=== PATIENT | female | born 1990 | race Caucasian/White ===

== ENCOUNTER 2018-03-28 12:51 | Emergency (ER) | payer MEDICAID, OTHER ==
[2018-03-28 15:17] VITALS: BP 119/62
--- NOTE | 2018-03-28 15:32 | UC ---
Throat Pain/Nasal Denilson HPI - HPI Summary HPI Summary: 27-year-old woman comes in with a chief complaint of 2 weeks of upper and discharge tract infection symptoms. Her rhinorrhea has turned green. She has sinus pressure does have mild sore throat. Last couple of days she has started feeling a lot worse. No shortness of breath no chest congestion. Over-the- counter medicines up with the symptoms. - History of Current Complaint Chief Complaint: UCRespiratory Stated Complaint: CONGESTION,SHEARER,ST Time Seen by Provider: 03/28/18 15:08 Hx Last Menstrual Period: [id number] Pain Intensity: 0 - Allergies/Home Medications Allergies/Adverse Reactions: Allergies Allergy/AdvReac Type Severity Reaction Status Date / Time acetaminophen Allergy Hives/Diff. Verified 03/28/18 15:18 Breathing/I tching PMH/Surg Hx/FS Hx/Imm Hx Previously Healthy: Yes - Surgical History Surgical History: Yes Surgery Procedure, Year, and Place: 2014 [place] - Family History Known Family History: Positive: Non-Contributory - Social History Alcohol Use: None Substance Use Type: None Smoking Status (MU): Light Every Day Tobacco Smoker Review of Systems All Other Systems Reviewed And Are Negative: Yes Constitutional: Positive: Negative Skin: Positive: Negative Eyes: Positive: Negative ENT: Positive: Nasal Discharge, Sinus Congestion, Sinus Pain/Tenderness Respiratory: Positive: Negative Cardiovascular: Positive: Negative Gastrointestinal: Positive: Negative Motor: Positive: Negative Neurovascular: Positive: Negative Musculoskeletal: Positive: Negative Neurological: Positive: Negative Psychological: Positive: Negative Is Patient Immunocompromised?: No Physical Exam Triage Information Reviewed: Yes Appearance: No Pain Distress, Well-Nourished, Ill-Appearing - MILD Vital Signs: Initial Vital Signs Temp 97.8 F 03/28/18 15:13 Pulse 78 03/28/18 15:13 Resp 18 03/28/18 15:13 BP 119/62 03/28/18 15:13 Pulse Ox 100 03/28/18 15:13 Vital Signs Reviewed: Yes Eye Exam: Normal Eyes: Positive: Conjunctiva Clear ENT: Positive: Pharyngeal erythema, Nasal congestion, Nasal drainage, TMs normal Neck exam: Normal Neck: Positive: Supple Respiratory: Positive: Lungs clear, Normal breath sounds, No respiratory distress Cardiovascular: Positive: RRR Musculoskeletal Exam: Normal Musculoskeletal: Positive: Strength Intact, ROM Intact Neurological Exam: Normal Neurological: Positive: Alert Psychological Exam: Normal Psychological: Positive: Age Appropriate Behavior Skin Exam: Normal Throat Pain/Nasal Course/Dx - Differential Dx/Diagnosis Provider Diagnosis: Sinusitis Discharge - Sign-Out/Discharge Documenting (check all that apply): Patient Departure All imaging exams completed and their final reports reviewed: No Studies - Discharge Plan Condition: Stable Disposition: HOME Prescriptions: Amoxicillin/Clavulanate TAB* [Augmentin TAB 875*] 875 mg PO BID #20 tab Patient Education Materials: Sinusitis (ED) Referrals: Leni MIRAMONTES,Bam Heller [Primary Care Provider] - Additional Instructions: FOLLOW UP WITH YOUR DOCTOR IF NOT COMPLETELY IMPROVED. GET RECHECKED FOR ANY WORSENING OF YOUR CONDITION OR QUESTIONS OR CONCERNS. - Billing Disposition and Condition Condition: STABLE Disposition: Home
[2018-03-28 15:54] LABS: Influenza A Molecular NEGATIVE (Negative); Influenza B Molecular NEGATIVE (Negative)
== END 2018-03-28 16:00 | disposition home or self-care (01) ==
LOC: UCCORT 12:51
DX: J32.9 Chronic sinusitis, unspecified (principal); F17.200 Nicotine dependence, unspecified, uncomplicated; Z88.8 Allergy status to other drugs, medicaments and biological substances
CPT/HCPCS: 99212; G0463

== ENCOUNTER 2018-05-02 16:48 | Emergency (ER) | payer OTHER ==
[2018-05-02 17:57] VITALS: BP 117/60
--- NOTE | 2018-05-02 18:05 | UC ---
UC Dental HPI - HPI Summary HPI Summary: 27 yo female with left upper dentalgia x 3-4 days swelling today feverish - History of Current Complaint Chief Complaint: UCDentalProblem Stated Complaint: DENTAL COMPLAINT Time Seen by Provider: 05/02/18 18:03 Hx Obtained From: Patient Hx Last Menstrual Period: end of 03/2018 on BCP Onset/Duration: Gradual Onset, Lasting Days Severity: Severe Pain Intensity: 9 Pain Scale Used: 0-10 Numeric Aggravating Factor(s): Heat, Cold, Chewing Alleviating Factor(s): OTC Meds Related History: Swelling Dental: 1 - abscess - Allergies/Home Medications Allergies/Adverse Reactions: Allergies Allergy/AdvReac Type Severity Reaction Status Date / Time acetaminophen Allergy Hives/Diff. Verified 05/02/18 17:57 Breathing/I tching Home Medications: Home Medications Ibuprofen TAB* [Advil TAB*] 800 mg PO ONCE 05/02/18 [History Confirmed 05/02/18] PMH/Surg Hx/FS Hx/Imm Hx Previously Healthy: Yes - Surgical History Surgical History: Yes Surgery Procedure, Year, and Place: 2014 [place] - Family History Known Family History: Positive: Hypertension, Non-Contributory - Social History Alcohol Use: None Substance Use Type: None Smoking Status (MU): Light Every Day Tobacco Smoker Type: Cigarettes Amount Used/How Often: < 1/2 ppd Review of Systems All Other Systems Reviewed And Are Negative: Yes Constitutional: Positive: Fatigue Skin: Positive: Negative Eyes: Positive: Negative ENT: Positive: Dental Pain Respiratory: Positive: Negative Gastrointestinal: Positive: Negative Genitourinary: Positive: Negative Motor: Positive: Negative Neurovascular: Positive: Negative Musculoskeletal: Positive: Negative Neurological: Positive: Negative Psychological: Positive: Negative Physical Exam Triage Information Reviewed: Yes Appearance: Well-Appearing, No Pain Distress Vital Signs: Initial Vital Signs Temp 100.7 F 05/02/18 17:53 Pulse 86 05/02/18 17:53 Resp 16 05/02/18 17:53 BP 117/60 05/02/18 17:53 Pulse Ox 100 05/02/18 17:53 Vital Signs Reviewed: Yes Eyes: Positive: Conjunctiva Clear ENT: Positive: Hearing grossly normal. Negative: Nasal congestion, Nasal drainage, Tonsillar swelling, Tonsillar exudate, Hoarse voice Dental: Positive: Abscess @ - see image Neck: Positive: Supple, Nontender, Enlarged Nodes @ - left ant cerv Respiratory: Positive: Lungs clear, Normal breath sounds, No respiratory distress, No accessory muscle use Cardiovascular: Positive: RRR, No Murmur Bowel Sounds: Positive: Present Musculoskeletal: Positive: ROM Intact, No Edema Neurological Exam: Normal Neurological: Positive: Alert Psychological Exam: Normal Dental Complaint Course/Dx - Differential Dx/Diagnosis Provider Diagnosis: Dental abscess Discharge - Sign-Out/Discharge Documenting (check all that apply): Patient Departure All imaging exams completed and their final reports reviewed: No Studies - Discharge Plan Condition: Stable Disposition: HOME Prescriptions: Penicillin VK 500 MG TAB(NF) [Penicillin VK 500 mg Tab] 500 mg PO QID #28 tab Patient Education Materials: Dental Abscess (ED) Referrals: Leni MIRAMONTES,Bam Heller [Primary Care Provider] - Additional Instructions: TO ER for worsening symptoms or if not improved in 48 hours see dentist as planned ibuprofen 4x day - Billing Disposition and Condition Condition: STABLE Disposition: Home
[2018-05-02] MEDS ORDERED: Penicillin VK TAB* 250 MG PO ONE (18:11)
== END 2018-05-02 18:26 | disposition home or self-care (01) ==
LOC: UCCORT 16:48
DX: K04.7 Periapical abscess without sinus (principal); F17.210 Nicotine dependence, cigarettes, uncomplicated; Z88.8 Allergy status to other drugs, medicaments and biological substances
CPT/HCPCS: 99212; A9270-GY; G0463

== ENCOUNTER 2018-05-04 10:06 | Emergency (ER) | payer SELFPAY ==
[2018-05-04 11:54] VITALS: BP 111/68
--- NOTE | 2018-05-04 12:24 | UC ---
Skin Complaint HPI - HPI Summary HPI Summary: Pt c/o sudden onset of erythema, swelling around left eye. Pt was seen here on 05/02/18 and given Pen VK 500 mg QID for dental abscess. Pt reports that she began noticing, swelling, itching and redness to skin around left eye. Pt took one benadryl last night and thinks selling improved - History of Current Complaint Chief Complaint: UCSkin Time Seen by Provider: 05/04/18 11:39 Stated Complaint: FACIAL CONCERN Hx Obtained From: Patient Hx Last Menstrual Period: "The end of March, beginning of April..." ?: No Onset/Duration: Gradual Onset, Still Present Skin Exposure Onset/Duration: Hours Ago Timing: Constant Onset Severity: Mild Current Severity: Mild Pain Intensity: 0 Location: Face Character: Pruritus, Redness, Raised Aggravating Factor(s): Touch Alleviating Factor(s): Antihistamines Related History: Recent change in medication - Allergy/Home Medications Allergies/Adverse Reactions: Allergies Allergy/AdvReac Type Severity Reaction Status Date / Time acetaminophen Allergy Hives/Diff. Verified 05/04/18 11:49 Breathing/I tching PMH/Surg Hx/FS Hx/Imm Hx Previously Healthy: Yes - Surgical History Surgical History: Yes Surgery Procedure, Year, and Place: Cholecystectomy, 2015, [place] - Family History Known Family History: Positive: Hypertension, Non-Contributory - Social History Occupation: Employed Full-time Lives: With Family Alcohol Use: None Substance Use Type: None Smoking Status (MU): Light Every Day Tobacco Smoker Type: Cigarettes Amount Used/How Often: < 1/2 PPD Length of Time of Smoking/Using Tobacco: Since Age 12 Have You Smoked in the Last Year: Yes Review of Systems All Other Systems Reviewed And Are Negative: Yes Constitutional: Positive: Negative Skin: Positive: Other - swelling, urticaria, erythema, pruritus Eyes: Positive: Negative ENT: Positive: Negative, Dental Pain - improved Respiratory: Positive: Negative Cardiovascular: Positive: Negative Gastrointestinal: Positive: Negative Genitourinary: Positive: Negative Motor: Positive: Negative Neurovascular: Positive: Negative Musculoskeletal: Positive: Negative Neurological: Positive: Negative Psychological: Positive: Negative Is Patient Immunocompromised?: No Physical Exam Triage Information Reviewed: Yes Appearance: Well-Appearing Vital Signs: Initial Vital Signs Temp 98 F 05/04/18 11:48 Pulse 83 05/04/18 11:48 Resp 16 05/04/18 11:48 BP 111/68 05/04/18 11:48 Pulse Ox 100 05/04/18 11:48 Vital Signs Reviewed: Yes Eye Exam: Normal Eyes: Positive: Other: - urticaria left eye area ENT Exam: Normal Dental Exam: Normal Neck exam: Normal Respiratory Exam: Normal Cardiovascular Exam: Normal Musculoskeletal Exam: Normal Neurological Exam: Normal Psychological Exam: Normal Skin Exam: Other - single hive around left eye Course/Dx - Differential Diagnoses - Skin Complaint Differential Diagnoses: Local Allergic Reaction, Urticaria - Diagnoses Provider Diagnosis: Urticaria Discharge - Sign-Out/Discharge Documenting (check all that apply): Patient Departure All imaging exams completed and their final reports reviewed: No Studies - Discharge Plan Condition: Stable Disposition: HOME Prescriptions: Clindamycin HCl 300 mg PO Q8H #21 capsule predniSONE TAB* [Deltasone 20 MG TAB*] 20 mg PO DAILY #4 tab Patient Education Materials: Antihistamine (By mouth), Urticaria (ED) Referrals: Leni MIRAMONTES,Bam Heller [Primary Care Provider] - If Needed - Billing Disposition and Condition Condition: STABLE Disposition: Home
== END 2018-05-04 12:47 | disposition home or self-care (01) ==
LOC: UCCORT 10:06
DX: L50.9 Urticaria, unspecified (principal); F17.210 Nicotine dependence, cigarettes, uncomplicated; Z88.8 Allergy status to other drugs, medicaments and biological substances
CPT/HCPCS: 99212; G0463

== ENCOUNTER 2018-05-09 11:02 | Emergency (ER) | payer SELFPAY ==
[2018-05-09 12:42] VITALS: BP 120/64
--- NOTE | 2018-05-09 12:54 | UC ---
UC Dental HPI - HPI Summary HPI Summary: Pt presents with c/o of continued swelling pm left side of face. Pt was seen here on05/02/18 and 05/04/18 for dental abscess c/o. pt began pcn, then was switched to clindamycin. Pt states she is still taking the clindamycin but now has soft, moveable lump at corner of left nostril that persists since onset of dental abscess. Pt denies pain, fever or drainage from swelling. - History of Current Complaint Chief Complaint: UCDentalProblem Stated Complaint: SINUS/SKIN CONCERN Time Seen by Provider: 05/09/18 12:36 Hx Obtained From: Patient Hx Last Menstrual Period: 04/12/18 ?: No Onset/Duration: Gradual Onset, Lasting Days, Still Present Severity: Mild Pain Intensity: 4 Aggravating Factor(s): Other - palpation Related History: Swelling - Allergies/Home Medications Allergies/Adverse Reactions: Allergies Allergy/AdvReac Type Severity Reaction Status Date / Time acetaminophen Allergy Hives/Diff. Verified 05/09/18 12:35 Breathing/I tching Penicillins Allergy Swelling Verified 05/09/18 12:35 Of Face,Lips,& Throat PMH/Surg Hx/FS Hx/Imm Hx Previously Healthy: Yes - Surgical History Surgical History: Yes Surgery Procedure, Year, and Place: Cholecystectomy, 2015, [place] - Family History Known Family History: Positive: Hypertension, Non-Contributory - Social History Occupation: Employed Full-time Lives: With Family Alcohol Use: None Substance Use Type: None Smoking Status (MU): Light Every Day Tobacco Smoker Type: Cigarettes Amount Used/How Often: < 1/2 PPD Length of Time of Smoking/Using Tobacco: Since Age 12 Have You Smoked in the Last Year: Yes Review of Systems All Other Systems Reviewed And Are Negative: Yes Constitutional: Positive: Negative Skin: Positive: Negative Eyes: Positive: Negative ENT: Positive: Other - facial swelling Respiratory: Positive: Negative Cardiovascular: Positive: Negative Gastrointestinal: Positive: Negative Genitourinary: Positive: Negative Motor: Positive: Negative Neurovascular: Positive: Negative Musculoskeletal: Positive: Negative Neurological: Positive: Negative Psychological: Positive: Negative Is Patient Immunocompromised?: No Physical Exam Triage Information Reviewed: Yes Appearance: Well-Appearing Vital Signs: Initial Vital Signs Temp 98.3 F 05/09/18 12:37 Pulse 69 05/09/18 12:37 Resp 16 03/27/19 12:37 BP 120/64 05/09/18 12:37 Pulse Ox 100 05/09/18 12:37 Vital Signs Reviewed: Yes Eye Exam: Normal ENT Exam: Normal Dental: Positive: Other: - palpable swelling left side of face a base of left nostril that extends along left side of face to mid eye. Neck exam: Normal Respiratory Exam: Normal Cardiovascular Exam: Normal Musculoskeletal Exam: Normal Neurological Exam: Normal Psychological Exam: Normal Skin Exam: Normal Dental Complaint Course/Dx - Course Course Of Treatment: pt has an appointment with dentist on 05/14/18 - Differential Dx/Diagnosis Differential Diagnosis/Dx: Dental Abscess, Dental Caries Provider Diagnosis: Left facial swelling Discharge - Sign-Out/Discharge Documenting (check all that apply): Patient Departure All imaging exams completed and their final reports reviewed: No Studies - Discharge Plan Condition: Stable Disposition: HOME Prescriptions: predniSONE TAB* [Deltasone 10 MG TAB*] 30 mg PO DAILY #12 tab Patient Education Materials: Dental Abscess (ED), Cyst (ED) Referrals: [facility] [Outside] - As Soon As Possible Leni MIRAMONTES,Bam Heller [Primary Care Provider] - Additional Instructions: Please follow up with your dental care provider and please establish care with a PCP as soon as possible. - Billing Disposition and Condition Condition: STABLE Disposition: Home
== END 2018-05-09 13:04 | disposition home or self-care (01) ==
LOC: UCCORT 11:02
DX: R22.0 Localized swelling, mass and lump, head (principal); F17.210 Nicotine dependence, cigarettes, uncomplicated; Z88.8 Allergy status to other drugs, medicaments and biological substances; Z88.0 Allergy status to penicillin
CPT/HCPCS: 99212; G0463

== ENCOUNTER 2018-12-08 09:01 | Emergency (ER) | payer SELFPAY ==
[2018-12-08 09:23] VITALS: BP 131/70
--- NOTE | 2018-12-08 09:58 | UC ---
Dental HPI - HPI Summary HPI Summary: Pt presents with c/o gradual onset of left side upper jaw pain and swelling that began " a couple days ago". Pt states that she took a Naproxen tablet this morning and then began to feel "weak" 20 minutes after taking it. Pt did not eat breakfast or take naproxen with food or drink. - History of Current Complaint Chief Complaint: UCDentalProblem Stated Complaint: DENTAL Time Seen by Provider: 12/08/18 09:51 Hx Obtained From: Patient Hx Last Menstrual Period: 11/17/18 ?: No Onset/Duration: Sudden Onset, Still Present Severity: Moderate Pain Intensity: 6 Aggravating Factor(s): Chewing Related History: Swelling - Allergies/Home Medications Allergies/Adverse Reactions: Allergies Allergy/AdvReac Type Severity Reaction Status Date / Time acetaminophen Allergy Hives/Diff. Verified 12/08/18 09:23 Breathing/I tching Penicillins Allergy Swelling Verified 12/08/18 09:23 Of Face,Lips,& Throat Home Medications: Home Medications Naproxen [Naprosyn 500 mg tab] 500 mg PO BID 12/08/18 [History Confirmed ] PMH/Surg Hx/FS Hx/Imm Hx Previously Healthy: Yes - Surgical History Surgical History: Yes Surgery Procedure, Year, and Place: Cholecystectomy, 2015, [place] - Family History Known Family History: Positive: Hypertension, Non-Contributory - Social History Occupation: Employed Full-time Lives: With Family Alcohol Use: None Substance Use Type: None Smoking Status (MU): Former Smoker Type: Cigarettes Amount Used/How Often: < 1/2 PPD Length of Time of Smoking/Using Tobacco: Since Age 12 Have You Smoked in the Last Year: Yes When Did the Patient Quit Smoking/Using Tobacco: 06/13/18 Review of Systems All Other Systems Reviewed And Are Negative: Yes Constitutional: Positive: Negative Skin: Positive: Negative Eyes: Positive: Negative ENT: Positive: Dental Pain Respiratory: Positive: Negative Cardiovascular: Positive: Negative Gastrointestinal: Positive: Negative Genitourinary: Positive: Negative Motor: Positive: Negative Neurovascular: Positive: Negative Musculoskeletal: Positive: Negative Neurological: Positive: Negative Psychological: Positive: Negative Is Patient Immunocompromised?: No Physical Exam Triage Information Reviewed: Yes Appearance: Well-Appearing Vital Signs: Initial Vital Signs Temp 98.0 F 12/08/18 09:19 Pulse 55 12/08/18 09:19 Resp 16 12/08/18 09:19 BP 131/70 12/08/18 09:19 Pulse Ox 100 12/08/18 09:19 Vital Signs Reviewed: Yes Eye Exam: Normal ENT Exam: Normal Dental: Positive: Other: - dental tenderness left upper molars Neck exam: Normal Respiratory Exam: Normal Respiratory: Positive: No respiratory distress Musculoskeletal Exam: Normal Neurological Exam: Normal Psychological Exam: Normal Skin Exam: Normal Dental Complaint Course/Dx - Course Course Of Treatment: Pt states that she thinks she has a cavity but is having difficulty making an appointment with a dentist. - Differential Dx/Diagnosis Differential Diagnosis/Dx: Dental Caries, Fractured Tooth Provider Diagnosis: Pain, dental Discharge ED - Sign-Out/Discharge Documenting (check all that apply): Patient Departure All imaging exams completed and their final reports reviewed: No Studies - Discharge Plan Condition: Stable Disposition: HOME Prescriptions: Clindamycin Cap(NF) [Clindamycin Cap 300 mg Cap(NF)] 300 mg PO Q8H #30 cap Patient Education Materials: Toothache (ED) Forms: *Work Release Referrals: Bam Farrar PA [Primary Care Provider] - If Needed Additional Instructions: Please follow up with your PCP as needed and Dental care provider as soon as possible. - Billing Disposition and Condition Condition: STABLE Disposition: Home
== END 2018-12-08 10:05 | disposition home or self-care (01) ==
LOC: UCCORT 09:01
DX: K08.89 Other specified disorders of teeth and supporting structures (principal); Z88.8 Allergy status to other drugs, medicaments and biological substances; Z88.0 Allergy status to penicillin; Z87.891 Personal history of nicotine dependence
CPT/HCPCS: 99212; G0463

== ENCOUNTER 2019-02-15 11:59 | Emergency (ER) | payer OTHER ==
[2019-02-15 12:42] VITALS: BP 117/53
--- NOTE | 2019-02-15 13:41 | UC ---
UC Dental HPI - HPI Summary HPI Summary: 28-year-old female presenting with left upper tooth pain 2 days. Patient states facial swelling began today and she is concerned for dental abscess. Notes pain and upper jaw that radiates to worship. Denies drainage and bleeding. Denies fever and chills. Denies nausea or vomiting. Patient states she has an appointment next week to have the tooth pulled but was told to come here for antibiotics in the meantime. - History of Current Complaint Chief Complaint: UCDentalProblem Stated Complaint: DENTAL COMPLAINT Hx Obtained From: Patient Hx Last Menstrual Period: 12/29/18 Onset/Duration: Gradual Onset, Lasting Days Severity: Moderate Pain Intensity: 6 Pain Scale Used: 0-10 Numeric - Allergies/Home Medications Allergies/Adverse Reactions: Allergies Allergy/AdvReac Type Severity Reaction Status Date / Time Penicillins Allergy Severe Swelling Verified 02/15/19 12:35 Of Face,Lips,& Throat acetaminophen Allergy Hives/Diff. Verified 02/15/19 12:35 Breathing/I tching PMH/Surg Hx/FS Hx/Imm Hx - Surgical History Surgical History: Yes Surgery Procedure, Year, and Place: Cholecystectomy, 2015, [place] - Family History Known Family History: Positive: Hypertension, Non-Contributory - Social History Alcohol Use: None Substance Use Type: None Smoking Status (MU): Former Smoker Type: Cigarettes Amount Used/How Often: < 1/2 PPD Length of Time of Smoking/Using Tobacco: Since Age 12 Have You Smoked in the Last Year: Yes When Did the Patient Quit Smoking/Using Tobacco: 06/13/18 Review of Systems All Other Systems Reviewed And Are Negative: Yes Constitutional: Positive: Negative. Negative: Fever, Chills ENT: Positive: Dental Pain - L upper tooth Respiratory: Positive: Negative Cardiovascular: Positive: Negative Gastrointestinal: Positive: Negative. Negative: Vomiting, Nausea Musculoskeletal: Positive: Negative Neurological: Positive: Negative Physical Exam Triage Information Reviewed: Yes Appearance: Well-Appearing, No Pain Distress, Well-Nourished Vital Signs: Initial Vital Signs Temp 97.1 F 02/15/19 12:34 Pulse 70 02/15/19 12:34 Resp 16 02/15/19 12:34 BP 117/53 02/15/19 12:34 Pulse Ox 99 02/15/19 12:34 Vital Signs Reviewed: Yes Eyes: Positive: Conjunctiva Clear ENT: Positive: Hearing grossly normal, Pharynx normal, TMs normal, Dental tenderness - L upper tooth, Uvula midline. Negative: Tonsillar swelling, Tonsillar exudate, Trismus, Muffled voice, Hoarse voice Dental: Positive: Percussion Tenderness @ - #14, Gross Decay/Caries @ - most teeth, Dental Fracture @ - #14, Cellulitis @ - L upper gingiva surrounding affected tooth, Other: - mild edema of L cheek adjacent to affected tooth. Negative: Abscess @, Cervical Lymphadenopathy, Bleeding Neck exam: Normal Neck: Positive: Supple, Nontender, No Lymphadenopathy Respiratory Exam: Normal Respiratory: Positive: Lungs clear, Normal breath sounds, No respiratory distress Cardiovascular Exam: Normal Cardiovascular: Positive: RRR Neurological: Positive: Alert Psychological: Positive: Age Appropriate Behavior Dental Complaint Course/Dx - Course Course Of Treatment: Patient with penicillin allergy, so I treated with clindamycin for dental infection. No sign of abscess on exam. VS normal. Educated on side effects of clindamycin and instructed to eat [place] yogurt or take probiotics while taking medication. Instructed to continue symptomatic treatment. Instructed to go to ED with any new or worsening symptoms. Stressed importance of attending dental appointment next week for tooth extraction. Patient voiced understanding and agreed with the treatment plan. - Differential Dx/Diagnosis Differential Diagnosis/Dx: Dental Abscess, Dental Caries, Fractured Tooth, Gingivitis, Peridontic Disease Provider Diagnosis: Infected dental caries Discharge ED - Sign-Out/Discharge Documenting (check all that apply): Patient Departure All imaging exams completed and their final reports reviewed: No Studies - Discharge Plan Condition: Stable Disposition: HOME Prescriptions: Clindamycin Cap(NF) [Clindamycin Cap 300 mg Cap(NF)] 300 mg PO Q6H #28 cap Patient Education Materials: Toothache (ED) Forms: *Work Release Referrals: Bam Farrar PA [Primary Care Provider] - If Needed Additional Instructions: As discussed, take Clindamycin as prescribed for the treatment of your dental infection. It is recommended that you eat [place] yogurt or take a probiotic while taking this medication, to help prevent infectious diarrhea called C. difficile. You may continue to take ibuprofen or tylenol as directed for pain relief. Warm compresses and salt water gargles may help alleviate symptoms. It is important that you attend your appointment with your dentist next week for further treatment. Go to the emergency room if you experience increasing pain, nausea, vomiting, or fever. - Billing Disposition and Condition Condition: STABLE Disposition: Home
== END 2019-02-15 13:58 | disposition home or self-care (01) ==
LOC: UCCORT 11:59
DX: K02.9 Dental caries, unspecified (principal); K04.7 Periapical abscess without sinus; Z87.891 Personal history of nicotine dependence; Z88.0 Allergy status to penicillin; Z88.6 Allergy status to analgesic agent
CPT/HCPCS: 99212; G0463

== ENCOUNTER 2019-03-28 09:03 | Emergency (ER) | payer OTHER ==
--- OUTSIDE RECORDS SUMMARY | 2019-03-28 09:14 | XMS REPORT | Continuity of Care Document ---
:1990 External Reference #:[id number] Author Name Abi Begum FNP Address [address] [place] [id number] Care Team Providers Name Role Phone Bam Farrar PA - Medical Care Team Information Checkroom Chief [phone] Problems Description No Information Available Social History Type Date Description Comments Sex Unknown Tobacco Use Start: Unknown End: Quit July 2018 Unknown ETOH Use Denies alcohol use Recreational Drug Use Denies Drug Use Tobacco Use Start: Unknown End: Patient is a former smoker Unknown Smoking Status Reviewed: 03/21/19 Patient is a former smoker Allergies, Adverse Reactions, Alerts Active Allergies Reaction Severity Comments Date Latex 04/10/2014 Tylenol 04/10/2014 Penicillin V Mild 08/17/2018 Penicillin G Mild 08/17/2018 Medications Active Medications SIG Qnty Indications Ordering Provider Date Ondansetron HCL take one tab 10tabs A08.39 Kel, 03/21/2019 4mg every 6-8 hours PINEDA Garcia Tablets as needed for nausea or vomiting Immunizations Description No Information Available Vital Signs Date Vital Result Comment 03/21/2019 3:35pm BP Systolic 103 mmHg BP Diastolic 54 mmHg Body Temperature 98.4 F Heart Rate 70 /min Respiratory Rate 18 /min Weight 177.25 lb O2 % BldC Oximetry 98 % 08/22/2018 2:35pm BP Systolic 114 mmHg BP Diastolic 71 mmHg Body Temperature 97.1 F Heart Rate 74 /min Height 67 inches 5'7" Weight 183.00 lb BMI (Body Mass Index) 28.7 kg/m2 BSA (Body Surface Area) 1.95 m2 [place] body weight in kilograms 61 kg O2 % BldC Oximetry 98 % Results Description No Information Available Procedures Description No Information Available Medical Devices Description No Information Available Encounters Type Date Location Provider Dx Diagnosis Office Visit 03/21/2019 [facility] Kel, W19.xxxA Unspecified fall, 3:30p PINEDA Garcia initial encounter A08.39 Other viral enteritis M54.5 Low back pain Assessments Date Code Description Provider 03/21/2019 W19.xxxA Unspecified fall, initial Abi Begum, PINEDA encounter 03/21/2019 A08.39 Other viral enteritis LoganCiaranIndiraAbi, PINEDA 03/21/2019 M54.5 Low back pain Logan-HelmAbi, PINEDA Plan of Treatment 03/21/2019 - Abi Begum, [id number] Unspecified fall, initial encounterComments:Use ice/ heat 20 minutes at a time, light stretches, ibuprofen as needed. No heavy lifting, note given for work until ivkkexU66.39 Other viral enteritisNew Medication:Ondansetron HCL 4 mg - take one tab every 6- 8 hours as needed for nausea or vomitingComments:Maintain adequate clear fluid intake by taking small sips of fluids often. [place] diet such as crackers or toast for the next 24 hours then gradually restart regular diet. Frequent handwashing, and avoid sharing food or drinks. Get medical help right away if you: Develop sudden, sharp abdominal pain, Have a rigid, hard abdomen that is tender to the touch, Have symptoms of fainting, excessive sweating, or confusion , Vomit blood or See blood in your stool (maroon, dark, or tarry black stools), Otherwise followup with your primary doctor within 5 days for recheck.M54.5 Low back painComments:Avoid heavy lifting or straining. Apply Ice alternating with heat, and use OTC NSAIDs such as naproxen or Ibuprofen as needed. Followup with your primary physician in 5-7 days for recheck, sooner if new or worsening symptoms occur. Functional Status Description No Information Available Mental Status Description No Information Available Referrals Description No Information Available
[2019-03-28 09:43] VITALS: BP 94/63
--- NOTE | 2019-03-28 10:36 | UC ---
General HPI - HPI Summary HPI Summary: Patient here with mother and young son. States she started with congestion and URI s/s. Then this morning was significantly worse with bodyaches, fatigue, cough and congestion. neck and headache. Did not want to get out of bed. Took ibuprofen this morning that did help her symptoms. Nauseated but no vomiting or diarrhea. no rash. Did not get a flu shot this year due to lack of insurance. Meds; reviewed Quit smoking a year ago. - History of Current Complaint Chief Complaint: UCGeneralIllness Stated Complaint: NECK/BODY ACHES Time Seen by Provider: 03/28/19 10:19 Hx Last Menstrual Period: 12/29/18 Pain Intensity: 2 - Allergy/Home Medications Allergies/Adverse Reactions: Allergies Allergy/AdvReac Type Severity Reaction Status Date / Time Penicillins Allergy Severe Swelling Verified 03/28/19 09:43 Of Face,Lips,& Throat acetaminophen Allergy Hives/Diff. Verified 03/28/19 09:43 Breathing/I tching PMH/Surg Hx/FS Hx/Imm Hx Previously Healthy: Yes - Surgical History Surgical History: Yes Surgery Procedure, Year, and Place: Cholecystectomy, 2015, [place] - Family History Known Family History: Positive: Hypertension, Non-Contributory - Social History Alcohol Use: None Substance Use Type: None Smoking Status (MU): Former Smoker Type: Cigarettes Amount Used/How Often: < 1/2 PPD Length of Time of Smoking/Using Tobacco: Since Age 12 Have You Smoked in the Last Year: Yes When Did the Patient Quit Smoking/Using Tobacco: 06/13/18 Review of Systems All Other Systems Reviewed And Are Negative: Yes Constitutional: Positive: Fever ENT: Positive: Sore Throat, Nasal Discharge Respiratory: Positive: Cough Gastrointestinal: Positive: Nausea Physical Exam Triage Information Reviewed: Yes Appearance: Other: - mildly ill appearing Vital Signs: Initial Vital Signs Temp 99.0 F 03/28/19 09:38 Pulse 65 03/28/19 09:38 Resp 18 03/28/19 09:38 BP 94/63 03/28/19 09:38 Pulse Ox 100 03/28/19 09:38 Vital Signs Reviewed: Yes Eyes: Positive: Conjunctiva Clear ENT: Positive: Pharyngeal erythema, Nasal congestion, TMs normal Neck: Positive: Supple, Nontender Respiratory: Positive: Lungs clear, Decreased breath sounds Cardiovascular: Positive: RRR, No Murmur Course/Dx - Course Course Of Treatment: This is a 28 yr old with fever, bodyaches and URI symptoms Flu: Negative Nontoxic appearing No respiratory distress Plan Influenza test was negative Recommend rest, fluids and ibuprofen as needed for pain/fever - take as directed Can take sudafed for congestion and mucinex as needed for cough - take both as directed If symptoms persist or worsen, recommend follow up with PCP or return to urgent care - Diagnoses Provider Diagnosis: Viral syndrome Discharge ED - Sign-Out/Discharge Documenting (check all that apply): Patient Departure All imaging exams completed and their final reports reviewed: No Studies - Discharge Plan Condition: Fair Disposition: HOME Patient Education Materials: Viral Syndrome (ED) Forms: *Work Release Referrals: Bam Farrar PA [Primary Care Provider] - Additional Instructions: Influenza test was negative Recommend rest, fluids and ibuprofen as needed for pain/fever - take as directed Can take sudafed for congestion and mucinex as needed for cough - take both as directed If symptoms persist or worsen, recommend follow up with PCP or return to urgent care - Billing Disposition and Condition Condition: FAIR Disposition: Home
[2019-03-28 10:40] LABS: Influenza A Molecular Negative (Negative); Influenza B Molecular Negative (Negative)
== END 2019-03-28 10:53 | disposition home or self-care (01) ==
LOC: UCCORT 09:03
DX: B34.9 Viral infection, unspecified (principal); J02.9 Acute pharyngitis, unspecified; R09.81 Nasal congestion; R11.0 Nausea; R05 Cough; M54.2 Cervicalgia; R53.83 Other fatigue; Z88.0 Allergy status to penicillin; Z88.8 Allergy status to other drugs, medicaments and biological substances; Z87.891 Personal history of nicotine dependence
CPT/HCPCS: 99211; G0463